=== PATIENT | female | born 1950 | race Caucasian/White ===

== ENCOUNTER 2019-10-28 20:34 | Emergency (ER) | payer MEDICAID ==
[~2019-10-28] VITALS: Ht 170.2 cm; Wt 48.1 kg
[2019-10-28 21:31] VITALS: Ht 170.2 cm; Wt 48.1 kg
[2019-10-29 01:30] VITALS: BP 149/67
== END 2019-10-29 01:30 | disposition home or self-care (01) ==
LOC: ED 20:34
DX: J10.1 Influenza due to other identified influenza virus with other respiratory manifestations (principal); I10 Essential (primary) hypertension; E11.9 Type 2 diabetes mellitus without complications
CPT/HCPCS: 87804